=== PATIENT | female | born 1995 | race African-American/Black ===

== ENCOUNTER 2023-09-05 05:30 | Inpatient (IN) | payer BC ==
[2023-09-05 06:05] VITALS: BMI 27.1
[2023-09-05] MEDS ORDERED: Ibuprofen 800 MG TAB PO PRN (06:24)
[2023-09-05] MEDS ORDERED: Ondansetron PF 4 MG/2 ML Vial IVP PRN ×3 (06:24→18:30)
[2023-09-05] MEDS ORDERED: Acetaminophen 500 MG TAB PO PRN (06:24)
[2023-09-05] MEDS ORDERED: Carboprost 250 MCG/ML AMP IM PRN (06:24)
[2023-09-05] MEDS ORDERED: Promethazine HCl 25 MG/ML VIAL IM PRN ×3 (06:24→18:30)
[2023-09-05] MEDS ORDERED: Lidocaine 1% (PF) 30 ML VIAL SC PRN (06:24)
[2023-09-05] MEDS ORDERED: Methylergonovine 0.2 MG/ML VIAL IM PRN (06:24)
[2023-09-05] MEDS ORDERED: Oxytocin 30 units/NS 500 ML 500 ML IV SCH ×2 (06:24)
[2023-09-05] MEDS ORDERED: HYDROcodone/Acetaminophen 5/325 mg Tablet PO PRN ×2 (06:24→18:30)
[2023-09-05] MEDS ORDERED: fentaNYL 50 mcg/mL 1 mL Vial SLOW IVP PRN (06:24)
[2023-09-05] MEDS ORDERED: hydrALAZINE 20 MG/ML VIAL SLOW IVP PRN ×2 (06:24→18:30)
[2023-09-05] MEDS ORDERED: Misoprostol 200 MCG TAB PR PRN (06:24)
[2023-09-05] MEDS ORDERED: Diphenoxylate HCl/Atropine Tablet PO PRN (06:24)
[2023-09-05] MEDS: Lactated Ringer's 1,000 ML IV SCH (06:47)
[2023-09-05] MEDS ORDERED: Misoprostol 100 MCG TAB VAG SCH (07:00)
[2023-09-05 07:01] LABS: Hematocrit 34.6 % (34.9-44.5); Hemoglobin 11.6 g/dL (12.0-15.5); Mean Corpuscular HGB CONC 33.5 g/dL (32.0-36.0); Mean Corpuscular Hemoglobin 28.5 pg (27.0-33.0); Mean Platelet Volume 12.9 fL (7.4-10.4); Platelet Count 200 10x3/uL (150-450); RBC Distribution Width 17.6 % (11.5-14.5); Red Blood Cell (RBC) Count 4.07 10x6/uL (3.90-5.03); White Blood Cell (WBC) Count 12.2 10x3/uL (3.5-10.5)
[2023-09-05] MEDS: Penicillin G Potassium 5 MILL.UNITS in Sodium Chloride 0.9% 100 ML IVPB SCH (07:28)
[2023-09-05 07:39] LABS: Syphilis Antibody Nonreactive (Nonreactive); Syphilis Antibody Index 0.07 S/CO (<1.00 Non-Reactive)
[2023-09-05 07:40] LABS: HBsAg Index 0.15 S/CO (0-0.99); Hep B Surf Ag - L&D Non-Reactive S/CO (NonReactive)
[2023-09-05] MEDS: Penicillin G 2.5 MILL.units 2.5 MILL.UNITS in Premix 1 BAG IVPB SCH (12:03)
[2023-09-05] MEDS: fentaNYL/Ropivacaine Epidural 100 ML ONE (14:04)
[2023-09-05] MEDS ORDERED: Moisturizing Cream (Eucerin) 113 GM JAR TOP PRN (14:25)
[2023-09-05] MEDS ORDERED: Naloxone HCl 0.4 mg/ml Vial IVP PRN ×2 (14:25)
[2023-09-05] MEDS ORDERED: ePHEDrine Sulfate 50 MG/10 ML VIAL SLOW IVP PRN (14:25)
[2023-09-05] MEDS ORDERED: diphenhydrAMINE 50 MG/ML VIAL IVP PRN (14:25)
[2023-09-05] MEDS ORDERED: Acetaminophen 325 MG TAB PO PRN (14:25)
[2023-09-05] MEDS ORDERED: Lactated Ringer's 500 ML IV PRN (14:25)
[2023-09-05] MEDS ORDERED: Communication Order-Pharmacy FS SCH (14:30)
[2023-09-05] MEDS ORDERED: fentaNYL 2 mcg/Ropivacaine 0.2% Epidural 100 ML CADD EPIDURAL SCH (14:30)
[2023-09-05] MEDS ORDERED: Preparation H Ointment 28 GM TUBE PR PRN (18:30)
[2023-09-05] MEDS ORDERED: Milk Of Magnesia 30 ML UDCUP PO PRN (18:30)
[2023-09-05] MEDS ORDERED: Benzocaine-Menthol 82.5 ML CAN TOP PRN (18:30)
[2023-09-05] MEDS ORDERED: Bisacodyl 10 MG SUPP PR PRN (18:30)
[2023-09-05] MEDS ORDERED: Lanolin Ointment 7 GM TUBE TOP PRN (18:30)
[2023-09-05] MEDS: Docusate 100 MG CAP PO SCH (21:14)
[2023-09-05] MEDS: Ibuprofen 800 MG TAB PO SCH (21:14)
[2023-09-06] MEDS: Ferrous Sulfate 325 MG TAB PO SCH (07:03)
[2023-09-06] MEDS: Boostrix 0.5 ML (Tdap) VIAL (>/=7 yrs of age) IM ONE (07:03)
[2023-09-06] MEDS: Prenatal Vitamin 1 TAB PO SCH (08:26)
[2023-09-07 08:48] VITALS: BP 121/63; TEMP 98
[2023-09-07] MEDS: HYDROcodone/Acetaminophen 5/325 mg Tablet PO PRN (08:57)
== END 2023-09-07 11:45 | disposition home or self-care (01) | DRG 807 ==
LOC: CSHLD 05:41 → CSHPP 18:36
PROVIDERS: ADMIT Student in an Organized Health Care Education/Training Program; ATTEND Student in an Organized Health Care Education/Training Program
PROC: 10E0XZZ Delivery of Products of Conception, External Approach (ICD-10-PCS; principal; 2023-09-05)
DX: O36.5930 Maternal care for other known or suspected poor fetal growth, third trimester, not applicable or unspecified (principal); Z37.0 Single live birth; Z3A.38 38 weeks gestation of pregnancy; O99.824 Streptococcus B carrier state complicating childbirth
CPT/HCPCS: 85027; 86780; 86850; 86900; 86901; 87340; J2540; J3490; J7120